=== PATIENT | female | born 1965 | race Hispanic/Latino ===

== ENCOUNTER 2024-11-23 18:43 | Emergency (ER) | payer OTHER, SELFPAY ==
[2024-11-23 18:45] VITALS: BP 142/95
[2024-11-23 19:14] LABS: Hematocrit 36.0 % (37.0-47.0); Hemoglobin 12.1 g/dL (12.0-16.0); Mean Corp Hgb Conc. 33.6 g/dL (33.0-37.0); Mean Corpuscular Volume 91.6 fL (81.0-99.0); Nucleated Red Blood Cells % 0 %; Platelet Count 164 10^3/uL (130-400); Red Cell Dist. Width 12.3 % (11.5-14.5)
[2024-11-23 19:36] LABS: ALT (SGPT) 127 U/L (0-35); AST (SGOT) 47 U/L (14-36); Albumin 4.5 g/dl (3.5-5.0); Alkaline Phosphatase 201 U/L (38-126); Blood Urea Nitrogen 14 mg/dl (7-17); Calcium 9.2 mg/dl (8.4-10.2); Carbon Dioxide 25 mmol/L (22-30); Chloride 108 mmol/L (98-107); Glucose 190 mg/dl (70-99); Potassium 4.3 mmol/L (3.5-5.1); Sodium 140 mmol/L (135-145); Total Protein 7.0 g/dl (6.3-8.2); eGFR > 60.00
[2024-11-23 19:37] LABS: Lipase 64 U/L (23-300)
[2024-11-23 22:14] VITALS: BP 137/76
[2024-11-24] VITALS: BP 134/75
[2024-11-24] MEDS: NSS 1000 IV (00:38)
[2024-11-24] MEDS: PROTONIX IV 40 MG IV (00:39)
[2024-11-24 01:00] VITALS: BP 138/70
[2024-11-24 02:35] VITALS: BP 138/75
[2024-11-24 03:00] VITALS: BP 115/66
--- NOTE | 2024-11-24 03:17 | ED.GENMED ---
History of Present Illness
General
Chief Complaint: Abdominal Pain
Source: patient, family and previous hospital records (Previous ED visit July 2021. Previous laboratory studies.)
Exam Limitations: none
Time Seen by Provider: 11/23/24 23:32
Nursing documentation reviewed up to this point in time: agreed with
History of Present Illness
History of Present Illness:
This is a 59-year-old woman who has history of rheumatoid arthritis, hypertension, zia-kxqavkk-vukmetsuq diabetes, hypothyroidism. Prior history of cholecystectomy as well as appendectomy.
She presents with epigastric discomfort, right upper quadrant pain that has been an ongoing issue for at least the past month, evaluated by her primary care physician in mid October and prescribed Pepcid 20 mg to be taken once daily. Thus far no
significant improvement in epigastric pain/right upper quadrant pain. She recently returned after a trip to [place] and then [place], returning on November 19. Since returning home she has had continued epigastric pain but also note of some
loose, nonbloody stools over the past 4 to 5 days. Loose stools are worse after eating. She has not had a fever nor chills.
No known close contacts with similar symptoms.
No recent antibiotic use.
Past History
Past History
ED Past Medical History: HTN, NIDDM, Hypothyroidism and Other (RA)
ED Past Surgical History: Appendectomy and Cholecystectomy
Social History
Tobacco: Non-smoker
Alcohol: None
Drug: None
Personal:
Living: with family
Employment: Retired
Family History
Family History: Other (Noncontributory)
Phy Exam
Physical Exam
Physical Exam:
GENERAL: 59-year-old woman appears her stated age, awake and alert, pleasant, appears in no acute distress.
EYE: anicteric
NECK: Supple, nontender, no meningismus, no significant adenopathy.
ENT: oral mucosa is moist. No rhinorrhea.
CARDIAC: Regular rate and rhythm. no murmur.
LUNGS: Clear breath sounds bilaterally, no acute respiratory distress, no wheezes/rales/rhonchi
ABDOMEN: Soft, nondistended, mild tenderness epigastric region, right upper quadrant, right mid abdomen, no r/g, no cvat. normoactive BS.
NEUROLOGICAL: Alert and oriented x3, no focal neuro deficits. Gait is steady.
SKIN: Warm and dry, normal color, skin intact. No rash.
MUSCULOSKELETAL: No C/C/E. peripheral pulses are full and equal b/l. No palpable tenderness.
PSYCH: Normal and appropriate interaction.
Course
Orders/Labs/Results
Orders:
Orders
11/23/24 18:53
Complete Blood Count/With Diff Urgent
Comprehensive Metabolic Panel Urgent
Lipase Urgent
11/23/24 22:25
US Abdomen Complete/Upper Urgent
Comment:
Reason For Exam: RUQ pain, elevated liver enzymes
11/24/24 00:27
Stool Culture Urgent
TOMA Source: Feces/Stool
Specimen Description:
11/24/24 00:28
CT Abd/pelvis W Iv Cont Urgent
Comment:
Reason For Exam: epigastric RUQ pain, N, D x 1 week
0.9% Sodium Chloride 1000 ml [Nss] 1,000 ml IV BOLUS
Pantoprazole [Protonix IV] 40 mg IV NOW STA
Abnormal Lab Results
11/23/24
18:53
WBC 3.8 L 10^3/uL
(4.8-10.8)
RBC 3.93 L 10^6/uL
(4.20-5.40)
Hct 36.0 L %
(37.0-47.0)
Chloride 108 H mmol/L
(98-107)
Creatinine 0.5 L mg/dL
(0.6-1.0)
Glucose 190 H mg/dl
(70-99)
AST 47 H U/L
(14-36)
ALT 127 H U/L
(0-35)
Alkaline Phosphatase 201 H U/L
(38-126)
11/23/24 18:53
11/23/24 18:53
Vital Signs
Initial and Last Documented VS:
Initial Vital Signs
Temp Pulse Resp BP Pulse Ox
98.9 F 92 17 142/95 98
11/23/24 18:45 11/23/24 18:45 11/23/24 18:45 11/23/24 18:45 11/23/24 18:45
Last Documented Vital Signs
Temp Pulse Resp BP Pulse Ox
98.1 F 74 17 115/66 94
11/24/24 00:12 11/24/24 03:00 11/24/24 03:00 11/24/24 03:00 11/24/24 02:45
MDM/Problems Addressed
Differential Diagnosis Includes:
Concern for acute gastritis, peptic ulcer disease, pancreatitis, choledocholithiasis, gastroenteritis, colitis.
Labs thus far revealed normal CBC with mild leukopenia at 3.8, similar to previous.
Moderately elevated LFTs with normal T. bili, similar elevations noted in 2021.
Abdominal ultrasound shows common bile duct measuring up to 15 mm, similar to previous ultrasound July 2021. There is subtle questionable echogenicity within the mid to distal common bile duct which may be artifactual versus sludge or other
debris. No definitive shadowing stones appreciated.
Will check CT abdomen pelvis. Will initiate IV fluids, given IV dose of Protonix. If diarrhea occurs will check stool cultures.
*Radiology
Radiology exam reviewed: radiology read reviewed
*Pulse Oximetry
SaO2: 94
Oxygen Mode of Delivery: Room air
Patient hypoxic: no
*Composing Machine Operator Interpretation
Rate: normal
Interpretation: normal
Rhythm: sinus
*Critical Care Note
Total Time (30-74mins, 75-104mins- exclusive of procedures): Not Applicable
Update Note
Update Note:
03:30
Patient feeling improved after IV fluids and IV Protonix. Epigastric and right upper quadrant pain have markedly improved.
She has had no diarrhea.
CAT scan shows moderate enlargement of bile ducts but no evidence of radiopaque, bile duct stone.
There is note of mild gastric wall thickening concerning for gastritis.
Also note of fluid-filled small bowel and proximal colon that can be seen with enteritis. Colonic diverticulosis without evidence for diverticulitis.
As above, reassuring that T. bili is normal and although LFTs elevated, similar and unchanged from previous results 2021.
Similar common bile duct dilatation noted on previous imaging in 2021 as well.
It is also reassuring that she is feeling improved after an IV dose of Protonix. I suspect her epigastric and right upper quadrant pain are gastroduodenitis in nature and suspect her more recent diarrheal illness is a viral versus mild foodborne
enteritis.
As she has not had a fever, no bloody diarrhea, no indication for antibiotic.
Will initiate Protonix as well as as needed Carafate for gastritis. Will add Lomotil for as needed diarrhea.
Recommend limiting diet to clear liquids over the next 1 to 2 days and then slowly advance to bland soft diet as tolerated.
Prompt follow-up with PCP for recheck.
ED Attending Note
-
Portions of this chart may have been created with voice recognition software.� Occasional wrong word or��sound alike� substitutions may have occurred due to the inherent limitations of voice recognition software.
Discharge Plan
Departure
Patient Disposition: Home (Routine Discharge)
Date of Disposition: 11/24/24
Time of Disposition: 03:34
Patient with high blood pressure during this ER visit?: No
Condition: Good
Discharge Problem:
Acute gastritis, Gastroenteritis, LFT elevation
Instructions: Gastritis, Viral gastroenteritis in adults
Prescriptions:
New
sucralfate [Carafate] 100 mg/mL suspension
10 ml PO QID PRN (Reason: upper abdominal pain) Qty: 400 0RF
diphenoxylate-atropine [Lomotil] 2.5-0.025 mg tablet
1 tab PO QID PRN (Reason: diarrhea) Qty: 10 0RF
pantoprazole [Protonix] 40 mg tablet,delayed release (DR/EC)
40 mg PO DAILY Qty: 30 1RF
No Action
losartan 50 MG tablet
50 mg PO DAILY
prednisone 5 MG tablet
5 mg PO DAILY
levothyroxine 150 MCG tablet
150 mcg PO DAILY
Referrals:
Dinesh Patel DO [Family Provider, Family Practice] - Call in 1-3 days for appt
Interventions
Interventions:
*Risk Screen - Suicide Last Done: 11/23/24 18:47
*General Assessment Last Done: 11/23/24 18:47
*Neglect/Abuse Screening Last Done: 11/23/24 18:47
*ED- Fall Risk Assessment Last Done: 11/23/24 22:04
*ED COVID-19 Vaccine History Last Done: 11/23/24 18:47
ON-Jlcgju-Qepnvdggth Assessment Last Done: 11/23/24 23:55
Discharge Date and Time
Print Language: SERBIAN
[2024-11-24 03:47] VITALS: BP 128/71
== END 2024-11-24 03:50 | disposition home or self-care (01) ==
LOC: EMR 18:43
PROVIDERS: Emergency Medicine; EMERGENCY PHYSICIAN Emergency Medicine; FAMILY PHYSICIAN Family Medicine
DX: R10.9 Unspecified abdominal pain (principal); M06.9 Rheumatoid arthritis, unspecified; I10 Essential (primary) hypertension; E11.9 Type 2 diabetes mellitus without complications; E03.9 Hypothyroidism, unspecified; K29.00 Acute gastritis without bleeding; K52.9 Noninfective gastroenteritis and colitis, unspecified; Z90.49 Acquired absence of other specified parts of digestive tract; Z90.710 Acquired absence of both cervix and uterus
CPT/HCPCS: 99284; 96374; 96361; 74177; 76700; 80053; 83690; 85025; Q9967